=== PATIENT | female | born 1990 | race Two or more races ===

== ENCOUNTER 2016-10-05 13:26 | Emergency (ER) | payer SELFPAY ==
[2016-10-05 13:31] VITALS: BP 120/71; PULSE 76; TEMP 98; BMI 29.8
--- NOTE | 2016-10-05 13:58 | PDOC ---
History of Present Illness - General Chief Complaint: Nasal Bleeding Stated Complaint: NOSE BLEEDS Time Seen by Provider: 10/05/16 13:32 History Source: Patient Exam Limitations: No Limitations - History of Present Illness Initial Comments: CHIEF COMPLAINT: 26 y/o afebrile female with no significant PMH c/o nosebleeds. HISTORY OF PRESENT ILLNESS: The patient states about 2 weeks ago she began getting nosebleeds every few days or so. For the past 2 days she's been taking dayquil and nyquil for cold symptoms and she began having nosebleeds more often. She states they usually stop within 5 minutes after applying pressure. She denies f/c, n/v/d, dizziness, [place], CP, SOB, palpitations, weakness. She is not on a blood thinner. Vital signs on arrival are within normal limits. REVIEW OF SYSTEMS: GENERAL/CONSTITUTIONAL: No fever/chills. No weakness. No weight change. HEAD, EYES, EARS, NOSE AND THROAT: No change in vision. No ear pain or discharge. No sore throat. +nasal congestion. + nose bleeds. CARDIOVASCULAR: No chest pain or shortness of breath. RESPIRATORY: No cough, wheezing, or hemoptysis. GASTROINTESTINAL: No abd pain, nausea, vomiting, diarrhea. GENITOURINARY: No dysuria, frequency, or change in urination. MUSCULOSKELETAL: No joint or muscle swelling or pain. No neck or back pain. SKIN: No rash or easy bruising. NEUROLOGIC: No headache, vertigo, loss of consciousness, or loss of sensation. PHYSICAL EXAM: GENERAL: The patient is awake, alert, and fully oriented, in no acute distress. She is very well appearing, ambulatory, in NAD or obvious discomfort. HEAD: Normal with no signs of trauma. Some TTP of maxillary sinuses ENT: Pupils equal, round and reactive to light, extraocular movements intact, sclera anicteric, conjunctiva clear. Neck supple. Dried blood seen in right nare. No septal hematomas. LUNGS: Clear to auscultation bilaterally. Normal excursion. No respiratory distress or use of accessory muscles. CV: RRR, S1/S2, no MRG. Cap refill < 2 sec. ABDOMEN: Soft, non-distended, non-tender even to deep palpation, no hepatomegaly or splenomegaly, no masses. EXTREMITIES: Normal range of motion, no edema. NEUROLOGICAL: Normal speech, normal gait. CN II-XII grossly intact. PSYCH: Normal mood, normal affect. SKIN: Warm, dry, normal turgor, no rashes or lesions noted. Past History - Past Medical History Allergies/Adverse Reactions: Allergies Allergy/AdvReac Type Severity Reaction Status Date / Time cat dander Allergy Verified 10/05/16 13:31 cats Allergy Uncoded 10/05/16 13:31 Home Medications: Ambulatory Orders NK [No Known Home Medication] 10/05/16 Other medical history: DENIES - Immunization History Immunization Up to Date: Yes - Psycho/Social/Smoking Cessation Hx Anxiety: No Suicidal Ideation: No Smoking History: Never smoked Have you smoked in the past 12 months: No Number of Cigarettes Smoked Daily: 0 Cigars Per Day: 0 Information on smoking cessation initiated: No Hx Alcohol Use: No Drug/Substance Use Hx: No Substance Use Type: None *Physical Exam - Vital Signs Last Vital Signs Temp Pulse Resp BP Pulse Ox 98 F 76 18 120/71 98 10/05/16 13:29 10/05/16 13:29 10/05/16 13:29 10/05/16 13:29 10/05/16 13:29 Medical Decision Making - Medical Decision Making A/P: 26 y/o female with more frequent nosebleeds over the past few days. Suggested she d/c dayquil and nyquil and instead try and over the counter antihistamine and decongestant. Instructed her to f/u with her PCP if symptoms continue and return to the ER if symptoms worsen. The patient verbalizes understanding of all instructions, has no further questions and is awaiting discharge. *DC/Admit/Observation/Transfer Diagnosis at time of Disposition: Frequent nosebleeds - Patient Instructions Printed Discharge Instructions: DI for Nosebleed Additional Instructions: Discharge Instructions: -Try taking an over the counter antihistamine or decongestant to help with your symptoms -Follow instructions in your discharge paperwork if your nose begins to bleed again. -If bleeding does not stop or you feel your symptoms worsen return to the ER for further evaluation - Post Discharge Activity Work/School Note: Back to Work
== END 2016-10-05 14:00 | disposition home or self-care (01) ==
LOC: JERFT 13:26
DX: R04.0 Epistaxis (principal)
CPT/HCPCS: 99281-25

== ENCOUNTER 2022-08-29 17:04 | Emergency (ER) | payer SELFPAY ==
[2022-08-29 17:28] VITALS: BP 104/83; PULSE 108; RESP 20; TEMP 99.4; BMI 35.2
[2022-08-29] MEDS ORDERED: ACETAMINOPHEN 1000 MG/100 ML BAG IVPB ONE (17:38)
[2022-08-29] MEDS ORDERED: SODIUM CHLORIDE 0.9% 500 ML INFUS.BAG IV ONE (17:39)
[2022-08-29] MEDS ORDERED: ACETAMINOPHEN INJECTION 100 ML IVPB ONE (17:49)
[2022-08-29 17:53] LABS: EPI CELLS 4 /uL (0-25.1); HYALINE CASTS 0 /uL (0-3.1); URINE APPEARANCE CLEAR; URINE BACTERIA 46 /uL (0-1359); URINE BILIRUBIN NEGATIVE (NEGATIVE); URINE COLOR YELLOW; URINE GLUCOSE (UA) NEGATIVE (NEGATIVE); URINE KETONE 4+ (NEGATIVE); URINE LEUK ESTERASE NEGATIVE (NEGATIVE); URINE NITRITE NEGATIVE (NEGATIVE); URINE PROTEIN 2+ (NEGATIVE); URINE RBC 27 /uL (0-23.9); URINE UROBILINOGEN 0.2 mg/dL (0.2-1.0); URINE WBC 4 /uL (0-25.8)
[2022-08-29 17:54] LABS: HCG,QUALITATIVE URINE Negative
[2022-08-29 18:22] LABS: BASO % 0.2 % (0-2.0); EOS % 0.1 % (0-4.5); HEMOGLOBIN 13.9 GM/dL (10.7-15.3); LYMPH % 6.4 % (8-40); MCH 29.4 pg (25.7-33.7); MCHC 33.1 g/dl (32.0-36.0); MEAN CELL VOLUME 88.7 fl (80-96); MONO % 4.7 % (3.8-10.2); NEUT % 88.6 % (42.8-82.8); PLATELET COUNT 288 10^3/uL (134-434); RBC 4.74 M/mm3 (3.60-5.2); RDW 12.9 % (11.6-15.6); WHITE BLOOD COUNT 15.2 K/mm3 (4.0-10.0)
[2022-08-29 18:42] LABS: ALBUMIN 4.3 g/dl (3.4-5.0); BLOOD UREA NITROGEN 7.5 mg/dL (7-18)
[2022-08-29 18:45] LABS: CREATININE 0.8 mg/dL (0.55-1.3)
[2022-08-29 18:46] LABS: BILIRUBIN,TOTAL 0.6 mg/dL (0.2-1)
[2022-08-29 18:47] LABS: TOT PROT 8.3 g/dl (6.4-8.2)
== END 2022-08-29 20:29 | disposition home or self-care (01) ==
LOC: JER 17:04 → JERFT 17:04
PROC: 3E033GC Introduction of Other Therapeutic Substance into Peripheral Vein, Percutaneous Approach (ICD-10-PCS; principal; 2022-08-29)
DX: N83.201 Unspecified ovarian cyst, right side (principal)
CPT/HCPCS: 36415; 76830-TC; 80053; 81003; 83690; 84703; 85025; 87086; 99284-25